=== PATIENT | female | born 1990 | race American Indian/Alaskan Native ===

== ENCOUNTER 2019-04-04 01:22 | Emergency (ER) | payer SELFPAY ==
[2019-04-04 03:26] LABS: Basophils % (Auto) 0.3 % (0.0-1.8); Eosinophils % (Auto) 0.2 % (0.0-4.3); Hematocrit 36.1 % (30.3-42.9); Hemoglobin 12.1 gm/dl (10.1-14.3); Lymphocytes # (Auto) 1.6 K/mm3 (1.2-5.4); Lymphocytes % (Auto) 14.6 % (13.4-35.0); Mean Corpuscular HGB Conc 34 % (30-34); Mean Corpuscular Volume 83 fl (79-97); Monocytes # (Auto) 0.6 K/mm3 (0.0-0.8); Monocytes % (Auto) 5.9 % (0.0-7.3); Platelet Count 237 K/mm3 (140-440); Red Blood Count 4.37 M/mm3 (3.65-5.03); Red Cell Distribution Width 13.9 % (13.2-15.2)
[2019-04-04] MEDS ORDERED: KETOROLAC 30 MG/1 ML INJ IV ONE (03:41)
[2019-04-04] MEDS ORDERED: ONDANSETRON 4 MG/2 ML INJ IV ONE (03:41)
[2019-04-04] MEDS ORDERED: FAMOTIDINE 20 MG/2 ML INJ IV ONE (03:41)
[2019-04-04] MEDS ORDERED: MAGNESIUM CITRATE 300 ML ORAL LIQD PO ONE (03:41)
[2019-04-04] MEDS ORDERED: GLYCERIN ADULT 2 GRAM RECT SUPP PR ONE (03:41)
[2019-04-04 03:50] LABS: Bilirubin,Urine NEG (Negative); Blood,Urine LG (Negative); Color,Urine Yellow (Yellow); Mucus,Urine 2+ /HPF; Urobilinogen,Urine < 2.0 mg/dL (<2.0)
[2019-04-04 03:51] LABS: Alanine Aminotransferase 11 units/L (7-56); Albumin 4.4 g/dL (3.9-5); BUN/Creatinine Ratio 11; Blood Urea Nitrogen 9 mg/dL (7-17); Calcium 9.2 mg/dL (8.4-10.2); Hemolysis Index 0
--- NOTE | 2019-04-04 05:16 | Cat Scan Report ---
CT OF THE ABDOMEN AND PELVIS WITH INTRAVENOUS CONTRAST INDICATION / CLINICAL INFORMATION: Generalized abdominal pain with nausea, vomiting and constipation.. TECHNIQUE: The patient received 100 cc Omnipaque [address] scans at this location are performed using CT dose reduction for ALARA by means of automated exposure control. COMPARISON: None available. FINDINGS: ABDOMEN: The liver, spleen, gallbladder, bile ducts, pancreas, adrenal glands, kidneys and bowel demo nstrate no significant abnormality. No adenopathy is seen. The lung bases are clear. PELVIS: The distal ureters and urinary bladder are normal. There is a 5.2 cm fibroid in the uterine f undus centrally. There are bilateral thick-walled cystic masses in both ovaries, the largest of which measures 3.9 cm on the right. There is a small amount of free fluid in the right adnexa. A normal ap pendix is present and there is no evidence of diverticulitis. I do not identify a hernia. IMPRESSION: 1. Thick walled cystic masses in both adnexal regions raises the possibility of PID. 2. 5.2 cm fibroid in the uterine fundus. Signer Name: Pepe Cuellar MD Signed: 04/04/2019 5:12 AM Workstation Name: [id number]
--- NOTE | 2019-04-04 05:52 | Emergency Department Report ---
ED Abdominal Pain HPI - General Chief Complaint: Abdominal Pain Stated Complaint: ABDOMINAL PAIN,CONSTIPATED Source: patient Mode of arrival: Ambulatory Limitations: No Limitations - History of Present Illness Initial Comments: Patient is a nulliparous 29-year-old -[place] female with no past medical history who presents to the ED with complaint of acute onset persistent diffuse abdominal pain with nausea and vomiting for the last 24 hours. Patient states that she has not had a bowel movement in the last 1 week and suspects that she may be constipated. Patient denies fever, chills, dysuria, urinary frequency and urgency, chest pain, shortness of breath, vaginal bleeding, vaginal discharge, headache, change in vision or cough and vaginal discharge MD Complaint: abdominal pain, other (No bowel movement in 1 week; Nausea and vomiting) -: Sudden, hour(s) (24) Location: diffuse Radiation: none Migration to: no migration Severity scale (0 -10): 8 Quality: cramping, sharp Consistency: constant Improves With: nothing Worsens With: nothing Context: other (No bowel movement in 1 week) Associated Symptoms: denies other symptoms, nausea, vomiting, constipation. d enies: diarrhea, fever, chills, dysuria, hematemesis, hematochezia, melena, anorexia, syncope - Related Data LMP Date: 04/02/19 Previous Rx's Medication Instructions Recorded Last Taken Type Dicyclomine [Bentyl] 20 mg PO Q6H PRN #20 tablet 04/04/19 Unknown Rx Glycerin Adult 2 gm 1 supp SD DAILY PRN #15 supp.rect 04/04/19 Unknown Rx Ketorolac [Toradol] 10 mg PO Q8H PRN #20 tablet 04/04/19 Unknown Rx Magnesium Citrate 296 ml PO DAILY PRN #2 bottle 04/04/19 Unknown Rx Ondansetron [Zofran Odt] 4 mg PO Q6HR PRN #20 tab.rapdis 04/04/19 Unknown Rx Allergies Allergy/AdvReac Type Severity Reaction Status Date / Time No Known Allergies Allergy Unverified 04/04/19 02:48 ED Review of Systems ROS: Stated complaint: ABDOMINAL PAIN,CONSTIPATED Other details as noted in HPI Constitutional: denies: chills, fever Eyes: denies: eye pain, eye discharge, vision change ENT: denies: ear pain, throat pain Respiratory: denies: cough, shortness of breath, wheezing Cardiovascular: denies: chest pain, palpitations Endocrine: no symptoms reported Gastrointestinal: abdominal pain, nausea, vomiting, constipation. denies: diarrhea Genitourinary: denies: urgency, dysuria, discharge Musculoskeletal: denies: back pain, joint swelling, arthralgia Skin: denies: rash, lesions Neurological: denies: headache, weakness, paresthesias Psychiatric: denies: anxiety, depression Hematological/Lymphatic: denies: easy bleeding, easy bruising ED Past Medical Hx - Past Medical History Previous Medical History?: No - Surgical History Past Surgical History?: No - Social History Smoking Status: Current Every Day Smoker Substance Use Type: None - Medications Home Medications: Home Medications Medication Instructions Recorded Confirmed Last Taken Type Dicyclomine [Bentyl] 20 mg PO Q6H PRN #20 tablet 04/04/19 Unknown Rx Glycerin Adult 2 gm 1 supp SD DAILY PRN #15 supp.rect 04/04/19 Unknown Rx Ketorolac [Toradol] 10 mg PO Q8H PRN #20 tablet 04/04/19 Unknown Rx Magnesium Citrate 296 ml PO DAILY PRN #2 bottle 04/04/19 Unknown Rx Ondansetron [Zofran Odt] 4 mg PO Q6HR PRN #20 tab.rapdis 04/04/19 Unknown Rx ED Physical Exam - General Limitations: No Limitations General appearance: alert, in no apparent distress - Head Head exam: Present: atraumatic, normocephalic, normal inspection - Eye Eye exam: Present: normal appearance, PERRL, EOMI Pupils: Present: normal accommodation - ENT ENT exam: Present: normal exam, normal orophraynx, mucous membranes moist, TM's normal bilaterally, normal external ear exam - Neck Neck exam: Present: normal inspection, full ROM - Respiratory Respiratory exam: Present: normal lung sounds bilaterally. Absent: respiratory distress, wheezes, rales, rhonchi, chest wall tenderness, accessory muscle use, decreased breath sounds - Cardiovascular Cardiovascular Exam: Present: regular rate, normal rhythm, normal heart sounds. Absent: systolic murmur, diastolic murmur, rubs, gallop - GI/Abdominal GI/Abdominal exam: Present: soft, tenderness (moderately tender diffuse lower a bdomen), normal bowel sounds. Absent: guarding, rebound, organomegaly - Bi-manual exam: Present: other (pelvic exam deferred) - Extremities Exam Extremities exam: Present: normal inspection, full ROM - Back Exam Back exam: Present: normal inspection, full ROM. Absent: tenderness, muscle spasm, paraspinal tenderness, vertebral tenderness - Neurological Exam Neurological exam: Present: alert, oriented X3, CN II-XII intact, normal gait, r eflexes normal - Psychiatric Psychiatric exam: Present: normal affect, normal mood - Skin Skin exam: Present: warm, dry, intact, normal color. Absent: rash ED Course Vital Signs 04/04/19 04/04/19 02:12 04:46 Temperature 99.1 F Pulse Rate 96 H Respiratory 18 20 Rate Blood Pressure 116/68 O2 Sat by Pulse 99 Oximetry ED Medical Decision Making - Lab Data Result diagrams: 04/04/19 02:54 04/04/19 02:54 - Radiology Data Radiology results: report reviewed, [place] [address] Cat Scan Report Signed Patient: CAREY MEJIAS MR#: [id number] : 1990 Acct:[id number] Age/Sex: 29 / F ADM Date: 04/04/19 Loc: ED Attending Dr: Ordering Physician: REHANA MEDINA Date of Service: 04/04/19 Procedure(s): CT abdomen pelvis w con Accession Number(s): [id number] cc: REHANA MEDINA CT OF THE ABDOMEN AND PELVIS WITH INTRAVENOUS CONTRAST INDICATION / CLINICAL INFORMATION: Generalized abdominal pain with nausea, vomiting and constipation.. TECHNIQUE: The patient received 100 cc Omnipaque [address] scans at this ocation are performed using CT dose reduction for ALARA by means of automated exposure control. COMPARISON: None available. FINDINGS: ABDOMEN: The liver, spleen, gallbladder, bile ducts, pancreas, adrenal glands, kidneys and bowel demonstrate no significant abnormality. No adenopathy is seen. The lung bases are clear. PELVIS: The distal ureters and urinary bladder are normal. There is a 5.2 cm fibroid in the uterine fundus centrally. There are bilateral thick-walled cystic masses in both ovar ies, the largest of which measures 3.9 cm on the right. There is a small amount of free fluid in the right adnexa. A normal appendix is present and there is no evidence of diverticulitis. I do not identify a hernia. IMPRESSION: 1. Thick walled cystic masses in both adnexal regions raises the possibility of PID. 2. 5.2 cm fibroid in the uterine fundus. Signer Name: Pepe Cuellar MD Signed: 04/04/2019 5:12 AM Workstation Name: [id number] Transcribed By: RT Dictated By: Pepe Cuellar MD Electronically Authenticated By: Pepe Cuellar MD Signed Date/Time: 04/04/19511 DD/ 7 TD/TT: - Medical Decision Making This is a 29-year-old female who presented to the ED with complaint of acute onset persistent severe diffuse lower abdominal pain with nausea and vomiting for the last 24 hours. Patient also stated that she has not had a bowel movem ent in a week. In the ED, patient is alert and oriented 3 and is not in distress but appears to be in pain. Lab test results were reviewed and all nonactionable including urinalysis. The patient was treated for pain in the ED and abdomen and pelvis CT scan with contrast shows distal ureters and urinary bladder which are normal. There is a 5.2 cm fibroid in the uterine fundus centrally. There are bilateral thick-walled cystic masses in both ovaries, the largest of which measures 3.9 cm on the right. There is a small amount of free fluid in the right adnexa. A normal appendix is present and there is no evidence of diverticulitis. I do not identify a hernia. On reevaluation, patient's pain is well controlled with medications. Patient is currently on her menstrual cycle, and abdominal pain may be from dysmenorrhea complicating an already existing leiomyomatous uterus and constipation. Patient was discharged home on pain medications, also discharged home on laxatives and was advised to follow-up with her primary care physician in 5-7 days for reevaluation or return to the ED immediately if symptoms get worse. - Differential Diagnosis Constipation; UTI; SBO; Appendicitis; Ovarian cyst; PID Critical care attestation.: If time is entered above; I have spent that time in minutes in the direct care of this critically ill patient, excluding procedure time. ED Disposition Clinical Impression: Dysmenorrhea Abdominal pain Qualifiers: Abdominal location: lower abdomen, unspecified Qualified Code(s): R10.30 - L ower abdominal pain, unspecified Uterine fibroid Qualifiers: Uterine leiomyoma location: unspecified location Qualified Code(s): D25.9 - Leiomyoma of uterus, unspecified Constipation Qualifiers: Constipation type: other constipation type Qualified Code(s): K59.09 - Other constipation Ovarian cyst Qualifiers: Laterality: bilateral Qualified Code(s): N83.201 - Unspecified ovarian cyst, right side; N83.202 - Unspecified ovarian cyst, left side Disposition: TO HOME OR SELFCARE Is pt being admited?: No Does the pt Need Aspirin: No Condition: Stable Instructions: Abdominal Pain (ED), Constipation (ED), Uterine Fibroids (ED), Dysmenorrhea (ED), Ovarian Cyst (ED) Additional Instructions: Take medications with food, drink plenty of fluids and follow up with your primary care physician in 5-7 days for reevaluation. Return to the ED immediately if symptoms get worse. Prescriptions: Dicyclomine [Bentyl] 20 mg PO Q6H PRN #20 tablet PRN Reason: Pain , Severe (7-10) Glycerin Adult 2 gm 1 supp SD DAILY PRN #15 supp.rect PRN Reason: Constipation Magnesium Citrate 296 ml PO DAILY PRN #2 bottle PRN Reason: Constipation Ketorolac [Toradol] 10 mg PO Q8H PRN #20 tablet PRN Reason: Pain Ondansetron [Zofran Odt] 4 mg PO Q6HR PRN #20 tab.rapdis PRN Reason: Nausea Referrals: [facility] [Outside] - 7-10 days Forms: Work/School Release Form(ED) Time of Disposition: 05:58 Print Language: TRINIDADIAN
[2019-04-04 07:11] VITALS: BP 115/69
== END 2019-04-04 07:09 | disposition home or self-care (01) ==
LOC: ED 01:22
DX: N83.201 Unspecified ovarian cyst, right side (principal); N83.202 Unspecified ovarian cyst, left side; D25.9 Leiomyoma of uterus, unspecified; K59.09 Other constipation; N94.6 Dysmenorrhea, unspecified; F17.200 Nicotine dependence, unspecified, uncomplicated
CPT/HCPCS: 36415; 74177; 80053; 81001; 83690; 84703; 85025; 96374; 96375; 99284; J1885; J2405; Q9967

== ENCOUNTER 2020-09-09 12:24 | Emergency (ER) | payer SELFPAY ==
[2020-09-09 17:02] VITALS: BP 120/81
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
== END 2020-09-09 19:02 | disposition home or self-care (01) ==
LOC: ED 12:24
DX: M54.2 Cervicalgia (principal); R51.9 Headache, unspecified; F17.200 Nicotine dependence, unspecified, uncomplicated; Z79.899 Other long term (current) drug therapy; V49.59XA Passenger injured in collision with other motor vehicles in traffic accident, initial encounter; Y92.410 Unspecified street and highway as the place of occurrence of the external cause; Y93.89 Activity, other specified; Y99.8 Other external cause status
CPT/HCPCS: 72040

== ENCOUNTER 2020-11-21 18:10 | Emergency (ER) | payer SELFPAY ==
[2020-11-21] MEDS ORDERED: ONDANSETRON 4 MG/2 ML INJ IV ONE (19:48)
[2020-11-21] MEDS ORDERED: SODIUM CHLORIDE 0.9% 1000 ML 1,000 ML IV ONE (19:48)
[2020-11-21] MEDS ORDERED: MORPHINE 4 MG/1 ML INJ IV ONE (19:48)
[2020-11-21 20:24] LABS: Basophils % (Auto) 0.2 % (0.0-1.8); Eosinophils % (Auto) 0.1 % (0.0-4.3); Hematocrit 34.6 % (30.3-42.9); Hemoglobin 11.3 gm/dl (10.1-14.3); Lymphocytes # (Auto) 1.9 K/mm3 (1.2-5.4); Lymphocytes % (Auto) 15.3 % (13.4-35.0); Mean Corpuscular HGB Conc 33 % (30-34); Mean Corpuscular Volume 82 fl (79-97); Monocytes # (Auto) 0.9 K/mm3 (0.0-0.8); Monocytes % (Auto) 7.1 % (0.0-7.3); Platelet Count 262 K/mm3 (140-440); Red Blood Count 4.22 M/mm3 (3.65-5.03); Red Cell Distribution Width 14.8 % (13.2-15.2)
[2020-11-21 20:40] LABS: Alanine Aminotransferase 9 units/L (7-56); Albumin 3.9 g/dL (3.9-5); Blood Urea Nitrogen 10 mg/dL (7-17); Hemolysis Index 3
[2020-11-21 20:59] LABS: BUN/Creatinine Ratio 14
--- NOTE | 2020-11-21 21:56 | Cat Scan Report ---
CT ABDOMEN AND PELVIS WITH CONTRAST HISTORY: Pt complains of R.L.Q. pain w/ Tachycardia. COMPARISON: 04/04/2019 TECHNIQUE: CT images of the abdomen and pelvis were obtained following administration of intravenous contrast. All CT scans at this location are performed using CT dose reduction for ALARA by means of automated exposure control. CONTRAST: 100 ml of intravenous contrast administered. FINDINGS: Lungs/bones: Lung bases are clear. Abdomen/pelvis: The liver, spleen, adrenal glands, pancreas, gallbladder and upper GI tract appear n ormal. The appendix appears normal. There is a large uterine fibroid greater than 5 cm in the uterine fundus. Bilateral cystic lesions are seen within the adnexa. No bowel obstruction is seen. No signif icant free fluid is identified. No acute bone findings are seen. IMPRESSION: 1. Thick-walled cystic masses in bilateral adnexa which could represent PID. Large uterine fibroid is again noted measures 7.4 x 6.7 cm. This previously measured 6.2 x 5.9 cm. 2. Appendix appears normal. Signer Name: Simon Lugo MD Signed: 11/21/2020 9:51 PM Workstation Name: [id number]
--- NOTE | 2020-11-21 23:40 | Ultrasound Report ---
ULTRASOUND PELVIS INDICATION: right pelvic side pain. TECHNIQUE: Transabdominal. Duplex Color Doppler used: Yes. COMPARISON: None available FINDINGS: Uterus: Present. Size: 11.4 x 5.8 x 6.4 cm. Endometrial complex: Normal measuring 0.35 cm. Mass lesions: 7 cm fundal fibroid. Additional findings: None. Right Ovary -- 4.7 x 2.7 x 3.7 CM Blood flow: Normal. Cyst or mass: 2.5 cm cyst Left Ovary-- 7.5 x 3.5 x 3.9 cm Blood flow: Normal. Cyst or mass: 3 cm cyst. Urinary Bladder: Normal. Free Fluid: None. Additional Findings: None. IMPRESSION: 1. Fundal fibroid. 2. Bilateral ovarian cysts. Signer Name: Fazal Delgado MD Signed: 11/21/2020 11:35 PM Workstation Name: [id number]
--- NOTE | 2020-11-22 00:14 | Emergency Department Report ---
ED Abdominal Pain HPI - General Chief Complaint: Abdominal Pain Stated Complaint: FIBROIDS Time Seen by Provider: 11/21/20 19:47 Source: patient Mode of arrival: Ambulatory Limitations: No Limitations - History of Present Illness Initial Comments: This is a 30-year-old female nontoxic, well nourished in appearance, no acute signs of distress presents to the ED with c/o of right lower abdomen x several days. Patient denies any N/V. Patient describes abdominal pain as cramping and aching with level of 10/10. Patient denies chest pain, short of breath, fever, hemoptysis, blood in stool, chills, headache, stiff neck, numbness or tingling. Patient denies any diarrhea or constipation. Denies any blood in stool. Patient denies any recent travels. Patient denies any allergies. Patient stated is currently on her menstrual cycle. MD Complaint: abdominal pain -: days(s) Location: RLQ Radiation: none Migration to: no migration Severity: mild Severity scale (0 -10): 8 Quality: cramping, aching Consistency: constant Improves With: nothing Worsens With: nothing Associated Symptoms: nausea. denies: vomiting, diarrhea, fever, chills, constipation, dysuria, hematemesis, hematochezia, melena, hematuria, anorexia, syncope - Related Data Previous Rx's Medication Instructions Recorded Last Taken Type Dicyclomine [Bentyl] 20 mg PO Q6H PRN #20 tablet 04/04/19 Unknown Rx Glycerin Adult 2 gm 1 supp SC DAILY PRN #15 supp.rect 04/04/19 Unknown Rx Ketorolac [Toradol] 10 mg PO Q8H PRN #20 tablet 04/04/19 Unknown Rx Magnesium Citrate 296 ml PO DAILY PRN #2 bottle 04/04/19 Unknown Rx Ondansetron [Zofran Odt] 4 mg PO Q6HR PRN #20 tab.rapdis 04/04/19 Unknown Rx Naproxen [EC-Naprosyn] 500 mg PO BID PRN #14 tablet.dr 09/09/20 Unknown Rx methOCARBAMOL [Robaxin TAB] 500 mg PO BID PRN #14 tab 09/09/20 Unknown Rx Naproxen 500 mg PO Q12H PRN #12 tablet 11/22/20 Unknown Rx Allergies Allergy/AdvReac Type Severity Reaction Status Date / Time No Known Allergies Allergy Verified 11/21/20 19:45 ED Review of Systems ROS: Stated complaint: FIBROIDS Other details as noted in HPI Comment: All other systems reviewed and negative Constitutional: denies: chills, fever Eyes: denies: eye pain, eye discharge, vision change ENT: denies: ear pain, throat pain Respiratory: denies: cough, shortness of breath, wheezing Cardiovascular: denies: chest pain, palpitations Endocrine: no symptoms reported Gastrointestinal: abdominal pain, nausea. denies: vomiting, diarrhea, constipation, hematemesis, melena, hematochezia Genitourinary: denies: urgency, dysuria, discharge Musculoskeletal: denies: back pain, joint swelling, arthralgia Skin: denies: rash, lesions Neurological: denies: headache, weakness, paresthesias Psychiatric: denies: anxiety, depression Hematological/Lymphatic: denies: easy bleeding, easy bruising ED Past Medical Hx - Past Medical History Previous Medical History?: Yes Additional medical history: fibriods - Surgical History Past Surgical History?: Yes Additional Surgical History: Ovarian cyst removal June 2019 - Social History Smoking Status: Current Every Day Smoker - Medications Home Medications: Home Medications Medication Instructions Recorded Confirmed Last Taken Type Dicyclomine [Bentyl] 20 mg PO Q6H PRN #20 tablet 04/04/19 Unknown Rx Glycerin Adult 2 gm 1 supp SC DAILY PRN #15 supp.rect 04/04/19 Unknown Rx Ketorolac [Toradol] 10 mg PO Q8H PRN #20 tablet 04/04/19 Unknown Rx Magnesium Citrate 296 ml PO DAILY PRN #2 bottle 04/04/19 Unknown Rx Ondansetron [Zofran Odt] 4 mg PO Q6HR PRN #20 tab.rapdis 04/04/19 Unknown Rx Naproxen [EC-Naprosyn] 500 mg PO BID PRN #14 tablet.dr 09/09/20 Unknown Rx methOCARBAMOL [Robaxin TAB] 500 mg PO BID PRN #14 tab 09/09/20 Unknown Rx Naproxen 500 mg PO Q12H PRN #12 tablet 11/22/20 Unknown Rx ED Physical Exam - General Limitations: No Limitations General appearance: alert, in no apparent distress - Head Head exam: Present: atraumatic, normocephalic - Eye Eye exam: Present: normal appearance - Neck Neck exam: Present: normal inspection, full ROM. Absent: tenderness, meningismus, lymphadenopathy - Respiratory Respiratory exam: Present: normal lung sounds bilaterally. Absent: respiratory distress, wheezes, rales, rhonchi, stridor, chest wall tenderness, accessory muscle use, decreased breath sounds, prolonged expiratory - Cardiovascular Cardiovascular Exam: Present: regular rate, normal rhythm, tachycardia, normal heart sounds. Absent: irregular rhythm, systolic murmur, diastolic murmur, rubs, gallop - GI/Abdominal GI/Abdominal exam: Present: soft, tenderness (RLQ), normal bowel sounds. Absent: distended, guarding, rebound - Extremities Exam Extremities exam: Present: normal inspection, full ROM - Back Exam Back exam: Present: normal inspection, full ROM. Absent: tenderness, CVA tenderness (R), CVA tenderness (L), muscle spasm, paraspinal tenderness, vertebral tenderness, rash noted - Neurological Exam Neurological exam: Present: alert, oriented X3, normal gait - Psychiatric Psychiatric exam: Present: normal affect, normal mood - Skin Skin exam: Present: warm, dry, intact, normal color. Absent: rash ED Course Vital Signs 11/21/20 11/21/20 11/22/20 19:40 20:16 00:48 Temperature 99.1 F 98.6 F Pulse Rate 105 H 79 Respiratory 18 18 17 Rate Blood Pressure 120/66 104/61 [Left] O2 Sat by Pulse 97 100 Oximetry - Reevaluation(s) Reevaluation #1: 11/22/20 00:33 Patient is speaking in full sentences with no signs of distress noted. ED Medical Decision Making - Lab Data Result diagrams: 11/21/20 20:00 11/21/20 20:00 Lab Results 11/21/20 11/21/20 11/21/20 Range/Units 20:00 20:00 20:00 WBC 12.7 H (4.5-11.0) K/mm3 RBC 4.22 (3.65-5.03) M/mm3 Hgb 11.3 (10.1-14.3) gm/dl Hct 34.6 (30.3-42.9) % MCV 82 (79-97) fl MCH 27 L (28-32) pg MCHC 33 (30-34) % RDW 14.8 (13.2-15.2) % Plt Count 262 (140-440) K/mm3 Lymph % (Auto) 15.3 (13.4-35.0) % Warren % (Auto) 7.1 (0.0-7.3) % Eos % (Auto) 0.1 (0.0-4.3) % Baso % (Auto) 0.2 (0.0-1.8) % Lymph # (Auto) 1.9 (1.2-5.4) K/mm3 Warren # (Auto) 0.9 H (0.0-0.8) K/mm3 Eos # (Auto) 0.0 (0.0-0.4) K/mm3 Baso # (Auto) 0.0 (0.0-0.1) K/mm3 Seg Neutrophils % 77.3 H (40.0-70.0) % Seg Neutrophils # 9.8 H (1.8-7.7) K/mm3 Sodium 139 (137-145) mmol/L Potassium 3.7 (3.6-5.0) mmol/L Chloride 104.2 (98-107) mmol/L Carbon Dioxide 25 (22-30) mmol/L Anion Gap 14 mmol/L BUN 10 (7-17) mg/dL Creatinine 0.7 (0.6-1.2) mg/dL Estimated GFR > 60 ml/min BUN/Creatinine Ratio 14 % Glucose 104 H (65-100) mg/dL Calcium 9.0 (8.4-10.2) mg/dL Total Bilirubin 0.40 (0.1-1.2) mg/dL AST 13 (5-40) units/L ALT 9 (7-56) units/L Alkaline Phosphatase 69 (35-129) units/L Total Protein 7.3 (6.3-8.2) g/dL Albumin 3.9 (3.9-5) g/dL Albumin/Globulin Ratio 1.1 % Lipase 30 (13-60) units/L HCG, Qual Negative (Negative) Urine Color (Yellow) Urine Turbidity (Clear) Urine pH (5.0-7.0) Ur Specific [place] (1.003-1.030) Urine Protein (Negative) mg/dL Urine Glucose (UA) (Negative) mg/dL Urine Ketones (Negative) mg/dL Urine Blood (Negative) Urine Nitrite (Negative) Urine Bilirubin (Negative) Urine Urobilinogen (<2.0) mg/dL Ur Leukocyte Esterase (Negative) Urine WBC (Auto) (0.0-6.0) /HPF Urine RBC (Auto) (0.0-6.0) /HPF U Epithel Cells (Auto) (0-13.0) /HPF Urine Mucus /HPF 11/21/20 Range/Units Unknown WBC (4.5-11.0) K/mm3 RBC (3.65-5.03) M/mm3 Hgb (10.1-14.3) gm/dl Hct (30.3-42.9) % MCV (79-97) fl MCH (28-32) pg MCHC (30-34) % RDW (13.2-15.2) % Plt Count (140-440) K/mm3 Lymph % (Auto) (13.4-35.0) % Warren % (Auto) (0.0-7.3) % Eos % (Auto) (0.0-4.3) % Baso % (Auto) (0.0-1.8) % Lymph # (Auto) (1.2-5.4) K/mm3 Warren # (Auto) (0.0-0.8) K/mm3 Eos # (Auto) (0.0-0.4) K/mm3 Baso # (Auto) (0.0-0.1) K/mm3 Seg Neutrophils % (40.0-70.0) % Seg Neutrophils # (1.8-7.7) K/mm3 Sodium (137-145) mmol/L Potassium (3.6-5.0) mmol/L Chloride (98-107) mmol/L Carbon Dioxide (22-30) mmol/L Anion Gap mmol/L BUN (7-17) mg/dL Creatinine (0.6-1.2) mg/dL Estimated GFR ml/min BUN/Creatinine Ratio % Glucose (65-100) mg/dL Calcium (8.4-10.2) mg/dL Total Bilirubin (0.1-1.2) mg/dL AST (5-40) units/L ALT (7-56) units/L Alkaline Phosphatase (35-129) units/L Total Protein (6.3-8.2) g/dL Albumin (3.9-5) g/dL Albumin/Globulin Ratio % Lipase (13-60) units/L HCG, Qual (Negative) Urine Color Yellow (Yellow) Urine Turbidity Clear (Clear) Urine pH 5.0 (5.0-7.0) Ur Specific [place] 1.060 H (1.003-1.030) Urine Protein 30 mg/dl (Negative) mg/dL Urine Glucose (UA) Neg (Negative) mg/dL Urine Ketones Neg (Negative) mg/dL Urine Blood Lg (Negative) Urine Nitrite Neg (Negative) Urine Bilirubin Neg (Negative) Urine Urobilinogen 4.0 (<2.0) mg/dL Ur Leukocyte Esterase Neg (Negative) Urine WBC (Auto) 1.0 (0.0-6.0) /HPF Urine RBC (Auto) 3.0 (0.0-6.0) /HPF U Epithel Cells (Auto) 10.0 (0-13.0) /HPF Urine Mucus 3+ /HPF - Radiology Data [facility] [address] [place] [address] Ultrasound Report Signed Patient: CAREY MEJIAS MR#: [id number] : 1990 Acct:[id number] Age/Sex: 30 / F ADM Date: 11/21/20 Loc: ED Attending Dr: Ordering Physician: GEORGIANA ACOSTA NP Date of Service: 11/21/20 Procedure(s): US pelvis duplex doppler comp Accession Number(s): [id number] cc: GEORGIANA ACOSTA NP ULTRASOUND PELVIS INDICATION: right pelvic side pain. TECHNIQUE: Transabdominal. Duplex Color Doppler used: Yes. COMPARISON: None available FINDINGS: Uterus: Present. Size: 11.4 x 5.8 x 6.4 cm. Endometrial complex: Normal measuring 0.35 cm. Mass lesions: 7 cm fundal fibroid. Additional findings: None. Right Ovary -- 4.7 x 2.7 x 3.7 CM Blood flow: Normal. Cyst or mass: 2.5 cm cyst Left Ovary-- 7.5 x 3.5 x 3.9 cm Blood flow: Normal. Cyst or mass: 3 cm cyst. Urinary Bladder: Normal. Free Fluid: None. Additional Findings: None. IMPRESSION: 1. Fundal fibroid. 2. Bilateral ovarian cysts. Signer Name: Fazal Delgado MD Signed: 11/21/2020 11:35 PM Workstation Name: [id number] Transcribed By: ES Dictated By: Fazal Delgado MD Electronically Authenticated By: Fazal Delgado MD Signed Date/Time: 11/21/202334 DD/ 32 TD/TT: [facility] [address] [place] [address] Cat Scan Report Signed Patient: CAREY MEJIAS MR#: [id number] : Acct:[id number] Age/Sex: 30 / F ADM Date: 11/21/20 Loc: ED Attending Dr: Ordering Physician: GEORGIANA ACOSTA NP Date of Service: 11/21/20 Procedure(s): CT abdomen pelvis w con Accession Number(s): [id number] cc: GEORGIANA ACOSTA NP CT ABDOMEN AND PELVIS WITH CONTRAST HISTORY: Pt complains of R.L.Q. pain w/ Tachycardia. COMPARISON: 04/04/2019 TECHNIQUE: CT images of the abdomen and pelvis were obtained following administration of intravenous contrast. All CT scans at this location are performed using CT dose reduction for ALARA by means of automated exposure control. CONTRAST: 100 ml of intravenous contrast administered. FINDINGS: Lungs/bones: Lung bases are clear. Abdomen/pelvis: The liver, spleen, adrenal glands, pancreas, gallbladder and upper GI tract appear normal. The appendix appears normal. There is a large uterine fibroid greater than 5 cm in the uterine fundus. Bilateral cystic lesions are seen within the adnexa. No bowel obstruction is seen. No significant free fluid is identified. No acute bone findings are seen. IMPRESSION: 1. Thick-walled cystic masses in bilateral adnexa which could represent PID. Large uterine fibroid is again noted measures 7.4 x 6.7 cm. This previously measured 6.2 x 5.9 cm. 2. Appendix appears normal. Signer Name: Simon Lugo MD Signed: 11/21/2020 9:51 PM Workstation Name: [id number] Transcribed By: LIS Dictated By: IDANIA LUGO MD Electronically Authenticated By: IDANIA LUGO MD Signed Date/Time: 11/21/202150 DD/ 48 TD/TT: - Medical Decision Making This is a 30-year-old female that presents with uterine fibroids and cysts. Patient is stable and was examined by me. Patient refused pelvic exam, even after instructed and educated patient of possible PID. Patient also refused empirical treatment for possible PID as she stated she is not concerned about this. Labs obtained. UA obtained. CT of abdomen obtained and dictated by the radiologist. Patient is notified of the report with no questions noted by the patient. Vital signs are stable prior to discharge. Patient received medical treatment in the ED which patient stated symptoms has resovled and subsided. Was instructed note to operate any machinery due to possible drowsiness and stated someone will drive the patient home. A by mouth challenge has been obtained and patient tolerated well with no nausea vomiting. Patient was also instructed to Follow-up with a primary care doctor in 3-5 days or if symptoms worsen and continue return to emergency room as soon as possible. At time of discharge, the patient does not seem toxic or ill in appearance. No acute signs of distress noted. Patient agrees to discharge treatment plan of care. No further questions noted by the patient. Critical care attestation.: If time is entered above; I have spent that time in minutes in the direct care of this critically ill patient, excluding procedure time. ED Disposition Clinical Impression: Uterine fibroid, Right lower quadrant abdominal pain, Uterine cyst, Dysmenorrhea Disposition: 01 HOME / SELF CARE / HOMELESS Is pt being admited?: No Does the pt Need Aspirin: No Condition: Stable Instructions: Abdominal Pain (ED) Additional Instructions: Follow-up with a primary care and [facility] doctor in 3-5 days or if symptoms worsen and continue return to emergency room as soon as possible. Prescriptions: Naproxen 500 mg PO Q12H PRN #12 tablet PRN Reason: Pain , Severe (7-10) Referrals: PRIMARY CAREMD [Primary Care Provider] - 3-5 Days PHILIPPE JERRY MD [Staff Physician] - 3-5 Days [facility] [Provider Group] - 3-5 Days Forms: Work/School Release Form(ED) Time of Disposition: 00:42
[2020-11-22 00:38] LABS: Bilirubin,Urine NEG (Negative); Blood,Urine LG (Negative); Color,Urine Yellow (Yellow); Mucus,Urine 3+ /HPF
[2020-11-22 00:49] VITALS: BP 104/61
== END 2020-11-22 01:00 | disposition home or self-care (01) ==
LOC: ED 18:10
DX: D25.9 Leiomyoma of uterus, unspecified (principal); N28.89 Other specified disorders of kidney and ureter; N94.6 Dysmenorrhea, unspecified; F17.200 Nicotine dependence, unspecified, uncomplicated; Z79.899 Other long term (current) drug therapy
CPT/HCPCS: 36415; 74177; 80053; 81001; 83690; 84703; 85025; 93975; 96361; 96374; 96375; 99284; J2270; J2405; J7030; Q9967

== ENCOUNTER 2021-01-27 15:09 | Emergency (ER) | payer SELFPAY ==
[2021-01-27] MEDS ORDERED: KETOROLAC 60 MG/2 ML INJ IM ONE (16:44)
[2021-01-27] MEDS ORDERED: HYDROcodone/ACETAMINOPHEN 5-325 MG TAB PO ONE (16:44)
[2021-01-27 17:31] LABS: Basophils % (Auto) 0.2 % (0.0-1.8); Eosinophils % (Auto) 0.1 % (0.0-4.3); Hematocrit 33.5 % (30.3-42.9); Hemoglobin 11.2 gm/dl (10.1-14.3); Lymphocytes % (Auto) 7.7 % (13.4-35.0); Mean Corpuscular HGB Conc 33 % (30-34); Mean Corpuscular Volume 82 fl (79-97); Monocytes # (Auto) 0.4 K/mm3 (0.0-0.8); Monocytes % (Auto) 3.3 % (0.0-7.3); Platelet Count 204 K/mm3 (140-440); Red Blood Count 4.09 M/mm3 (3.65-5.03); Red Cell Distribution Width 14.9 % (13.2-15.2)
[2021-01-27 17:54] LABS: Alanine Aminotransferase 8 units/L (7-56); Albumin 4.2 g/dL (3.9-5); Blood Urea Nitrogen 13 mg/dL (7-17); Calcium 9.1 mg/dL (8.4-10.2); Hemolysis Index 14
[2021-01-27 17:55] LABS: BUN/Creatinine Ratio 19
[2021-01-27 18:36] LABS: Mucus,Urine FEW /HPF; WBC,Urine < 1.0 /HPF (0.0-6.0)
[2021-01-27 18:42] LABS: Bilirubin,Urine Negative (Negative); Blood,Urine Negative (Negative); Color,Urine Yellow (Yellow); Urobilinogen,Urine < 2.0 mg/dL (<2.0)
--- NOTE | 2021-01-27 19:32 | Ultrasound Report ---
Pelvic Ultrasound HISTORY: pelvic pain. TECHNIQUE: Grayscale and color imaging performed. COMPARISON: Pelvic ultrasound from 11/21/2020 FINDINGS: Transabdominal and endovaginal imaging was performed. Uterus measures 10.7 x 5.9 x 5.9 cm with endometrial echo complex measuring 7 mm. Several small uteri ne fibroids are again noted. Right ovary is slightly enlarged and contains a 3.6 cm mildly complex cysts. Other smaller follicles are also noted. No significant pelvic free fluid. IMPRESSION: 1. Uterine fibroids. 2. Simple ovarian cysts, largest on the right with mild complexity and likely functional. Signer Name: Livan Davis MD Signed: 01/27/2021 7:28 PM Workstation Name: [id number]
[2021-01-27] MEDS ORDERED: LIDOCAINE-MPF (1%) 10 MG/1 ML VIAL 5 ML INFILTRATI ONE (19:56)
--- NOTE | 2021-01-27 20:11 | Emergency Department Report ---
ED General Adult HPI - General Chief complaint: Abdominal Pain Stated complaint: AB PAIN Time Seen by Provider: 01/27/21 16:34 Source: patient, family Mode of arrival: Wheelchair Limitations: No Limitations - History of Present Illness Initial comments: Patient is a 30-year-old female presents emergency room planes of lower abdominal pain that began suddenly earlier this morning. She has a history of uterine fibroids and ovarian cyst. She states that she has not been able to follow-up with [facility] secondary to insurance issues. Patient was evaluated in the emergency department for similar symptoms in October, and had findings of possible PID at that time, according to the note patient refused pelvic examination and medication, she is now agreeable to both. She denies any fever, nausea, vomiting, diarrhea, dysuria, vaginal discharge, vaginal bleeding. No other past medical history. No allergies to medications. Severity scale (0 -10): 5 - Related Data Previous Rx's Medication Instructions Recorded Last Taken Type Dicyclomine [Bentyl] 20 mg PO Q6H PRN #20 tablet 04/04/19 Unknown Rx Glycerin Adult 2 gm 1 supp AR DAILY PRN #15 supp.rect 04/04/19 Unknown Rx Ketorolac [Toradol] 10 mg PO Q8H PRN #20 tablet 04/04/19 Unknown Rx Magnesium Citrate 296 ml PO DAILY PRN #2 bottle 04/04/19 Unknown Rx Ondansetron [Zofran Odt] 4 mg PO Q6HR PRN #20 tab.rapdis 04/04/19 Unknown Rx Naproxen [EC-Naprosyn] 500 mg PO BID PRN #14 tablet.dr 09/09/20 Unknown Rx methOCARBAMOL [Robaxin TAB] 500 mg PO BID PRN #14 tab 09/09/20 Unknown Rx Naproxen 500 mg PO Q12H PRN #12 tablet 11/22/20 Unknown Rx Doxycycline Hyclate [Doxycycline 100 mg PO BID 7 Days #14 tab 01/27/21 Unknown Rx Hyclate TAB] Naproxen 500 mg PO BID PRN #14 tablet 01/27/21 Unknown Rx metroNIDAZOLE [Flagyl] 500 mg PO BID 7 Days #14 tab 01/27/21 Unknown Rx Allergies Allergy/AdvReac Type Severity Reaction Status Date / Time No Known Allergies Allergy Verified 11/21/20 19:45 ED Review of Systems ROS: Stated complaint: AB PAIN Other details as noted in HPI Comment: All other systems reviewed and negative ED Past Medical Hx - Past Medical History Previous Medical History?: Yes Additional medical history: fibriods - Surgical History Past Surgical History?: Yes Additional Surgical History: Ovarian cyst removal June 2019 - Social History Smoking Status: Never Smoker - Medications Home Medications: Home Medications Medication Instructions Recorded Confirmed Last Taken Type Dicyclomine [Bentyl] 20 mg PO Q6H PRN #20 tablet 04/04/19 Unknown Rx Glycerin Adult 2 gm 1 supp AR DAILY PRN #15 supp.rect 04/04/19 Unknown Rx Ketorolac [Toradol] 10 mg PO Q8H PRN #20 tablet 04/04/19 Unknown Rx Magnesium Citrate 296 ml PO DAILY PRN #2 bottle 04/04/19 Unknown Rx Ondansetron [Zofran Odt] 4 mg PO Q6HR PRN #20 tab.rapdis 04/04/19 Unknown Rx Naproxen [EC-Naprosyn] 500 mg PO BID PRN #14 tablet.dr 09/09/20 Unknown Rx methOCARBAMOL [Robaxin TAB] 500 mg PO BID PRN #14 tab 09/09/20 Unknown Rx Naproxen 500 mg PO Q12H PRN #12 tablet 11/22/20 Unknown Rx Doxycycline Hyclate [Doxycycline 100 mg PO BID 7 Days #14 tab 01/27/21 Unknown Rx Hyclate TAB] Naproxen 500 mg PO BID PRN #14 tablet 01/27/21 Unknown Rx metroNIDAZOLE [Flagyl] 500 mg PO BID 7 Days #14 tab 01/27/21 Unknown Rx ED Physical Exam - General Limitations: No Limitations General appearance: alert, other (tearful from pain ) - Head Head exam: Present: atraumatic, normocephalic - Eye Eye exam: Present: normal appearance - ENT ENT exam: Present: mucous membranes moist - Respiratory Respiratory exam: Present: normal lung sounds bilaterally. Absent: respiratory distress, wheezes, rales, rhonchi, stridor, chest wall tenderness, accessory muscle use, decreased breath sounds, prolonged expiratory - Cardiovascular Cardiovascular Exam: Present: regular rate, normal rhythm, normal heart sounds. Absent: systolic murmur, diastolic murmur, rubs, gallop - GI/Abdominal GI/Abdominal exam: Present: soft, tenderness (suprapubic), normal bowel sounds. Absent: distended, guarding, rebound, rigid - External exam: Present: other (overse[employer]: tulio, RN). Absent: erythema, swelling, lesions, lacerations, ecchymosis Speculum exam: Present: vaginal discharge (clear), cervical discharge (clear). Absent: erythema, vaginal bleeding, foreign body, tissue, laceration Bi-manual exam: Present: cervical motion tendernes. Absent: adnexal tenderness, adnexal mass - Neurological Exam Neurological exam: Present: alert, oriented X3 - Psychiatric Psychiatric exam: Present: normal affect, normal mood - Skin Skin exam: Present: warm, dry, intact ED Course Vital Signs 01/27/21 01/27/21 01/27/21 15:51 17:53 20:31 Temperature 97.5 F L 98.1 F 98.0 F Pulse Rate 93 H 77 71 Respiratory 20 14 14 Rate Blood Pressure 113/75 Blood Pressure 123/69 122/68 [Right] O2 Sat by Pulse 99 99 99 Oximetry ED Medical Decision Making - Lab Data Result diagrams: 01/27/21 17:09 01/27/21 17:09 - Radiology Data Radiology results: report reviewed Ordering Physician: REHANA GARCIA Date of Service: 01/27/21 Procedure(s): US pelvic complete Accession Number(s): [id number] cc: REHANA GARCIA Pelvic Ultrasound HISTORY: pelvic pain. TECHNIQUE: Grayscale and color imaging performed. COMPARISON: Pelvic ultrasound from 11/21/2020 FINDINGS: Transabdominal and endovaginal imaging was performed. Uterus measures 10.7 x 5.9 x 5.9 cm with endometrial echo complex measuring 7 mm. Several small uterine fibroids are again noted. Right ovary is slightly enlarged and contains a 3.6 cm mildly complex cysts. O ther smaller follicles are also noted. No significant pelvic free fluid. IMPRESSION: 1. Uterine fibroids. 2. Simple ovarian cysts, largest on the right with mild complexity and likely f unctional. Signer Name: Livan Davis MD Signed: 01/27/2021 7:28 PM Workstation Name: [id number] Transcribed By: SILVA Dictated By: Livan Davis MD Electronically Authenticated By: Livan Davis MD Signed Date/Time: 01/27/211927 DD/ 24 TD/TT: Print Cancel - Medical Decision Making Patient is a 30-year-old female presents emergency room planes of lower abdominal pain that began suddenly earlier this morning. She has a history of uterine fibroids and ovarian cyst. She states that she has not been able to follow-up with [facility] secondary to insurance issues. Patient was evaluated in the emergency department for similar symptoms in October, and had findings of possible PID at that time, according to the note patient refused pelvic examination and medication, she is now agreeable to both. She denies any fever, nausea, vomiting, diarrhea, dysuria, vaginal discharge, vaginal bleeding. No other past medical history. No allergies to medications. Vitals are normal. On exam patient has suprapubic abdominal tenderness palpation. Labs are stable. UA without evidence of UTI. Pelvic ultrasound: 1. Uterine fibroids. 2. Simple ovarian cysts, largest on the right with mild complexity and likely functional. On chaperoned pelvic examination patient does have CMT, given the previous findings of possible PID, discussed with patient antibiotic therapy, she is agreeable with plan. Patient given Rocephin while in the emergency department. Wet prep is negative. G/C swab sent. Discussed to follow-up with medical records for results of G/C swab. Patient given prescription for doxycycline and Flagyl and naproxen. Advised patient Please take medication as prescribed. Follow-up with [facility]. Return to emergency room for any new or worsening symptoms. Critical care attestation.: If time is entered above; I have spent that time in minutes in the direct care of this critically ill patient, excluding procedure time. ED Disposition Clinical Impression: Pelvic pain, PID (acute pelvic inflammatory disease) Uterine fibroid Qualifiers: Uterine leiomyoma location: unspecified location Qualified Code(s): D25.9 - Leiomyoma of uterus, unspecified Ovarian cyst Qualifiers: Laterality: right Qualified Code(s): N83.201 - Unspecified ovarian cyst, right side Disposition: 01 HOME / SELF CARE / HOMELESS Is pt being admited?: No Does the pt Need Aspirin: No Condition: Stable Instructions: Uterine Fibroids, Ovarian Cyst, Pelvic Inflammatory Disease, Eas y-to-Read, Abdominal Pain (ED) Additional Instructions: Please take medication as prescribed. Follow-up with [facility]. Return to emergency room for any new or worsening symptoms. Prescriptions: Doxycycline Hyclate [Doxycycline Hyclate TAB] 100 mg PO BID 7 Days #14 tab metroNIDAZOLE [Flagyl] 500 mg PO BID 7 Days #14 tab Naproxen 500 mg PO BID PRN #14 tablet PRN Reason: pain Referrals: [facility] [Provider Group] - 3-5 Days [facility] [Provider Group] - 3-5 Days Time of Disposition: 20:11 Print Language: UZBEK
[2021-01-27 20:32] VITALS: BP 122/68
== END 2021-01-27 20:35 | disposition home or self-care (01) ==
LOC: EDBD → ED 15:09
DX: N73.9 Female pelvic inflammatory disease, unspecified (principal); Z98.890 Other specified postprocedural states; Z79.899 Other long term (current) drug therapy
CPT/HCPCS: 36415; 76830; 76856; 80053; 81001; 84703; 85025; 87210; 87591; 96372; 99284; J0696; J1885

== ENCOUNTER 2021-02-19 17:01 | Emergency (ER) | payer SELFPAY ==
[2021-02-19] MEDS ORDERED: predniSONE 20 MG TAB PO ONE ×2 (18:09→20:34)
[2021-02-19] MEDS ORDERED: KETOROLAC 10 MG TAB PO ONE (18:09)
--- NOTE | 2021-02-19 18:11 | Emergency Department Report ---
ED General Adult HPI - General Chief complaint: Extremity Injury, Upper Stated complaint: Right hand pain and swelling Time Seen by Provider: 02/19/21 17:44 Source: patient Mode of arrival: Ambulatory Limitations: No Limitations - History of Present Illness Initial comments: 31-year-old -Mex[place] female patient presents with complaints of right m iddle finger pain and swelling x2 days. She denies any specific injury, however states she has had cramping pain in the finger for a few months after jamming her finger. No new injuries, fever/chills/sweats, IV drug use, penetrating skin trauma. Past medical history includes uterine fibroids. Patient also states she has swollen lymph nodes in her neck for the past week that has been improving without throat pain, difficulty moving her neck, cough, chest pain, shortness of breath. No loss of taste or smell per patient No recent known sick contacts. - Related Data Previous Rx's Medication Instructions Recorded Last Taken Type Dicyclomine [Bentyl] 20 mg PO Q6H PRN #20 tablet 04/04/19 Unknown Rx Glycerin Adult 2 gm 1 supp LA DAILY PRN #15 supp.rect 04/04/19 Unknown Rx Ketorolac [Toradol] 10 mg PO Q8H PRN #20 tablet 04/04/19 Unknown Rx Magnesium Citrate 296 ml PO DAILY PRN #2 bottle 04/04/19 Unknown Rx Ondansetron [Zofran Odt] 4 mg PO Q6HR PRN #20 tab.rapdis 04/04/19 Unknown Rx Naproxen [EC-Naprosyn] 500 mg PO BID PRN #14 tablet.dr 09/09/20 Unknown Rx methOCARBAMOL [Robaxin TAB] 500 mg PO BID PRN #14 tab 09/09/20 Unknown Rx Naproxen 500 mg PO Q12H PRN #12 tablet 11/22/20 Unknown Rx Doxycycline Hyclate [Doxycycline 100 mg PO BID 7 Days #14 tab 01/27/21 Unknown Rx Hyclate TAB] Naproxen 500 mg PO BID PRN #14 tablet 01/27/21 Unknown Rx metroNIDAZOLE [Flagyl] 500 mg PO BID 7 Days #14 tab 01/27/21 Unknown Rx Acetaminophen/Codeine [Tylenol 1 tab PO Q8H PRN #10 tab 02/19/21 Unknown Rx /Codeine # 3 tab] Naproxen 500 mg PO BID PRN #20 tablet 02/19/21 Unknown Rx Prednisone [predniSONE 10 mg 10 mg PO .TAPER #1 tab.ds.pk 02/19/21 Unknown Rx (6-Day Pack, 21 Tabs)] Allergies Allergy/AdvReac Type Severity Reaction Status Date / Time No Known Allergies Allergy Verified 02/19/21 17:07 ED Review of Systems ROS: Stated complaint: Right hand pain and swelling Other details as noted in HPI Constitutional: denies: chills, diaphoresis, fever, malaise, weakness ENT: denies: throat pain Respiratory: denies: cough, shortness of breath Cardiovascular: denies: chest pain Gastrointestinal: denies: abdominal pain, nausea, vomiting Musculoskeletal: joint swelling, arthralgia Skin: denies: change in color Neurological: denies: headache, numbness, paresthesias Hematological/Lymphatic: swollen glands ED Past Medical Hx - Past Medical History Additional medical history: fibriods - Surgical History Additional Surgical History: Ovarian cyst removal June 2019 - Social History Smoking Status: Never Smoker - Medications Home Medications: Home Medications Medication Instructions Recorded Confirmed Last Taken Type Dicyclomine [Bentyl] 20 mg PO Q6H PRN #20 tablet 04/04/19 Unknown Rx Glycerin Adult 2 gm 1 supp LA DAILY PRN #15 supp.rect 04/04/19 Unknown Rx Ketorolac [Toradol] 10 mg PO Q8H PRN #20 tablet 04/04/19 Unknown Rx Magnesium Citrate 296 ml PO DAILY PRN #2 bottle 04/04/19 Unknown Rx Ondansetron [Zofran Odt] 4 mg PO Q6HR PRN #20 tab.rapdis 04/04/19 Unknown Rx Naproxen [EC-Naprosyn] 500 mg PO BID PRN #14 tablet.dr 09/09/20 Unknown Rx methOCARBAMOL [Robaxin TAB] 500 mg PO BID PRN #14 tab 09/09/20 Unknown Rx Naproxen 500 mg PO Q12H PRN #12 tablet 11/22/20 Unknown Rx Doxycycline Hyclate [Doxycycline 100 mg PO BID 7 Days #14 tab 01/27/21 Unknown Rx Hyclate TAB] Naproxen 500 mg PO BID PRN #14 tablet 01/27/21 Unknown Rx metroNIDAZOLE [Flagyl] 500 mg PO BID 7 Days #14 tab 01/27/21 Unknown Rx Acetaminophen/Codeine [Tylenol 1 tab PO Q8H PRN #10 tab 02/19/21 Unknown Rx /Codeine # 3 tab] Naproxen 500 mg PO BID PRN #20 tablet 02/19/21 Unknown Rx Prednisone [predniSONE 10 mg 10 mg PO .TAPER #1 tab.ds.pk 02/19/21 Unknown Rx (6-Day Pack, 21 Tabs)] ED Physical Exam - General Limitations: No Limitations General appearance: alert, in no apparent distress - Head Head exam: Present: atraumatic, normocephalic - Eye Eye exam: Present: normal appearance. Absent: scleral icterus - ENT ENT exam: Present: normal exam, normal orophraynx - Neck Neck exam: Present: full ROM, lymphadenopathy (Bilateral submandibular moderate lymphadenopathy noted without tenderness to palpation). Absent: tenderness - Respiratory Respiratory exam: Absent: respiratory distress - Extremities Exam Extremities exam: Present: other (Tenderness to palpation noted to right third MCP joint and PIP with mild swelling noted; normal sensation and perfusion noted; patient unable to make full fist; fingers not stuck in flexion however; tenderness to palpation with extension of the finger; no cellulitic changes noted) - Neurological Exam Neurological exam: Present: alert, oriented X3 - Psychiatric Psychiatric exam: Present: normal affect, normal mood - Skin Skin exam: Present: warm, dry, intact, normal color. Absent: rash ED Course Vital Signs 02/19/21 02/19/21 02/19/21 17:09 17:13 18:47 Temperature 98.7 F Pulse Rate 94 H Respiratory 18 16 Rate Blood Pressure 136/87 [Right] O2 Sat by Pulse 99 Oximetry 02/19/21 22:05 Temperature Pulse Rate 80 Respiratory 12 Rate Blood Pressure 114/84 [Right] O2 Sat by Pulse 99 Oximetry ED Medical Decision Making - Lab Data Result diagrams: 02/19/21 19:47 02/19/21 18:37 Lab Results 02/19/21 02/19/21 02/19/21 Range/Units 18:37 18:37 19:47 WBC 6.6 (4.5-11.0) K/mm3 RBC 4.13 (3.65-5.03) M/mm3 Hgb 10.9 (10.1-14.3) gm/dl Hct 33.9 (30.3-42.9) % MCV 82 (79-97) fl MCH 26 L (28-32) pg MCHC 32 (30-34) % RDW 15.3 H (13.2-15.2) % Plt Count 217 (140-440) K/mm3 Lymph % (Auto) 26.5 (13.4-35.0) % Cochran % (Auto) 6.7 (0.0-7.3) % Eos % (Auto) 0.5 (0.0-4.3) % Baso % (Auto) 0.3 (0.0-1.8) % Lymph # (Auto) 1.8 (1.2-5.4) K/mm3 Cochran # (Auto) 0.4 (0.0-0.8) K/mm3 Eos # (Auto) 0.0 (0.0-0.4) K/mm3 Baso # (Auto) 0.0 (0.0-0.1) K/mm3 Seg Neutrophils % 66.0 (40.0-70.0) % Seg Neutrophils # 4.4 (1.8-7.7) K/mm3 Sodium 138 (137-145) mmol/L Potassium 3.7 (3.6-5.0) mmol/L Chloride 102.1 (98-107) mmol/L Carbon Dioxide 24 (22-30) mmol/L Anion Gap 16 mmol/L BUN 12 (7-17) mg/dL Creatinine 0.7 (0.6-1.2) mg/dL Estimated GFR > 60 ml/min BUN/Creatinine Ratio 17 % Glucose 90 (65-100) mg/dL Calcium 8.7 (8.4-10.2) mg/dL Monoscreen Negative (Negative) - Radiology Data Radiology results: report reviewed Right hand-3 views INDICATION: 3rd digit pain/swelling, no injury, worse at MCP. COMPARISON: None. IMPRESSION: No acute osseous abnormality. Generalized soft tissue swelling overlying the long finger MCP joint. Normal alignment. No significant DJD. - Medical Decision Making 31-year-old -[place] female patient presents with complaints of right middle finger pain and swelling x2 days. She denies any specific injury, however states she has had cramping pain in the finger for a few months after jamming her finger. No new injuries, fever/chills/sweats, IV drug use, penetrating skin trauma. Past medical history includes uterine fibroids. Patient also states she has swollen lymph nodes in her neck for the past week that has been improving without throat pain, difficulty moving her neck, cough, chest pain, shortness of breath. No loss of taste or smell per patient No recent known sick contacts. X-ray shows soft tissue swelling without acute bony abnormalities. On exam, there is swelling only to the MCP joint and the proximal finger without fusiform swelling. No cellulitic changes are noted. After prednisone and pain medication patient has full range of motion of the finger. CBC is normal and she is afebrile nontachycardic. At this time, I do not suspect infectious tenosynovitis. Will treat with NSAIDs, prednisone, and pain medication. Recomm end follow-up with orthopedics. She is well-appearing and stable for discharge home. Discussed presumptive diagnosis, care plan, signs and symptoms that should prompt immediate return to the ED with patient who verbalizes understanding. Critical care attestation.: If time is entered above; I have spent that time in minutes in the direct care of this critically ill patient, excluding procedure time. ED Disposition Clinical Impression: Finger pain, right Disposition: 01 HOME / SELF CARE / HOMELESS Is pt being admited?: No Condition: Stable Instructions: Tenosynovitis Prescriptions: Naproxen 500 mg PO BID PRN #20 tablet PRN Reason: pain Prednisone [predniSONE 10 mg (6-Day Pack, 21 Tabs)] 10 mg PO .TAPER #1 tab.ds.pk Acetaminophen/Codeine [Tylenol /Codeine # 3 tab] 1 tab PO Q8H PRN #10 tab PRN Reason: Pain , Severe (7-10) Referrals: [facility] [Provider Group] - as needed [facility] [Provider Group] - 2-3 Days [facility], [Primary Care Provider] - 2-3 Days Forms: Work/School Release Form(ED)
--- NOTE | 2021-02-19 18:35 | XRay Report ---
Right hand-3 views INDICATION: 3rd digit pain/swelling, no injury, worse at MCP. COMPARISON: None. IMPRESSION: No acute osseous abnormality. Generalized soft tissue swelling overlying the long finge r MCP joint. Normal alignment. No significant DJD. Signer Name: Livan Davis MD Signed: 02/19/2021 6:30 PM Workstation Name: [id number]
[2021-02-19] MEDS ORDERED: oxyCODONE /ACETAMINOPHEN 5-325MG TAB PO ONE (19:54)
[2021-02-19 20:07] LABS: Basophils % (Auto) 0.3 % (0.0-1.8); Eosinophils % (Auto) 0.5 % (0.0-4.3); Hematocrit 33.9 % (30.3-42.9); Hemoglobin 10.9 gm/dl (10.1-14.3); Lymphocytes # (Auto) 1.8 K/mm3 (1.2-5.4); Lymphocytes % (Auto) 26.5 % (13.4-35.0); Mean Corpuscular HGB Conc 32 % (30-34); Mean Corpuscular Volume 82 fl (79-97); Monocytes # (Auto) 0.4 K/mm3 (0.0-0.8); Monocytes % (Auto) 6.7 % (0.0-7.3); Platelet Count 217 K/mm3 (140-440); Red Blood Count 4.13 M/mm3 (3.65-5.03); Red Cell Distribution Width 15.3 % (13.2-15.2)
[2021-02-19 20:22] LABS: Blood Urea Nitrogen 12 mg/dL (7-17); Calcium 8.7 mg/dL (8.4-10.2); Hemolysis Index 3
[2021-02-19 20:25] LABS: BUN/Creatinine Ratio 17
[2021-02-19 22:06] VITALS: BP 114/84
== END 2021-02-19 22:10 | disposition home or self-care (01) ==
LOC: ED 17:01
DX: M79.644 Pain in right finger(s) (principal); M79.89 Other specified soft tissue disorders
CPT/HCPCS: 36415; 73130; 80048; 85025; 86308; 99284; J7512